=== PATIENT | female | born 1935 | race Caucasian/White ===

== ENCOUNTER → 2023-08-08 12:21 | Outpatient (REF) | payer OTHER, SELFPAY | LOC: RAD 12:21 | PROVIDERS: ATTENDING PHYSICIAN Orthopaedic Surgery Adult Reconstructive Orthopaedic Surgery; FAMILY PHYSICIAN Internal Medicine | DX: M17.0 Bilateral primary osteoarthritis of knee (principal) | CPT/HCPCS: 73700 ==

== ENCOUNTER → 2023-12-15 13:31 | Outpatient (REF) | payer OTHER, SELFPAY | LOC: HWWDC 13:31 | PROVIDERS: ATTENDING PHYSICIAN Internal Medicine | DX: Z12.31 Encounter for screening mammogram for malignant neoplasm of breast (principal) | CPT/HCPCS: 77063; 77067 ==